=== PATIENT | female | born 1990 | race Caucasian/White ===

== ENCOUNTER 2021-08-11 07:36 | Inpatient (IN) | payer OTHER ==
[~2021-08-11] VITALS: Ht 160 cm; Wt 108.9 kg
[2021-08-11 08:32] LABS: BILIRUBIN NEGATIVE (NEGATIVE); BLOOD 2+ Ery/uL (NEGATIVE); CLARITY CLEAR (CLEAR); COLOR YELLOW (YELLOW); GLUCOSE (U) NORMAL (NORMAL); LEUKOCYTES NEGATIVE Leu/uL (NEGATIVE); NITRITE NEGATIVE (NEGATIVE); PROTEIN NEGATIVE (NEGATIVE); UROBILINOGEN 0.2 mg/dL (0.2-1.0)
[2021-08-11 08:34] LABS: AMPHETAMINES NEGATIVE (NEGATIVE); BARBITURATES NEGATIVE (NEGATIVE); ECSTASY (MDMA) NEGATIVE (NEGATIVE); MARIJUANA (THC) NEGATIVE (NEGATIVE); METHADONE NEGATIVE (NEGATIVE); OPIATES NEGATIVE (NEGATIVE); OXYCODONE NEGATIVE (NEGATIVE)
[2021-08-11 08:42] LABS: BACTERIA TRACE
[2021-08-11 08:48] LABS: HCT 37.3 % (37.0-47.0); HGB 12.3 g/dl (12.5-16.0); MCH 29.5 pg (25.0-31.0); MCV 89.4 fL (78.0-100.0); MPV 10.3 fL (6.0-9.5); RBC 4.17 M/uL (4.20-5.40); RDW 13.7 % (11.5-14.0); WBC 12.6 K/uL (4.0-10.5)
[2021-08-11 09:22] LABS: ALBUMIN 2.5 g/dL (3.4-5.0); BILIRUBIN - TOTAL 0.2 mg/dL (0.2-1.0); CREATININE 0.62 mg/dL (0.51-0.95); POTASSIUM 3.7 mmol/L (3.5-5.1); TOTAL PROTEIN 6.5 g/dL (6.4-8.2)
[2021-08-11 11:53] LABS: PROTEIN:CREATININE 0.27 RATIO; URINE CREATININE 103.81 mg/dL (29.00-226.00); URINE TOTAL PROTEIN-RANDOM 28.8 mg/dL (<11.9)
[2021-08-12 06:35] LABS: HCT 28.1 % (37.0-47.0); HGB 9.3 g/dl (12.5-16.0); MCH 30.1 pg (25.0-31.0); MCHC 33.1 g/dL (32.0-36.0); MCV 90.9 fL (78.0-100.0); RBC 3.09 M/uL (4.20-5.40); RDW 14.1 % (11.5-14.0); WBC 15.4 K/uL (4.0-10.5)
[2021-08-12] MEDS ORDERED: PRENATAL FORMU1 EACH PO (18:38)
[2021-08-12] MEDS ORDERED: METFORMIN HCL500 MG PO (18:38)
[2021-08-12] MEDS ORDERED: ASPIRIN EC81 MG PO (18:41)
[2021-08-12] MEDS ORDERED: COLACE100 MG PO (18:41)
[2021-08-12] MEDS ORDERED: VITAMIN D31250 MCG PO (18:41)
[2021-08-12] MEDS ORDERED: PRILOSEC20 MG PO (18:42)
[2021-08-13] MEDS ORDERED: TUCKS MEDICATE1 EACH TOP (07:52)
[2021-08-13] MEDS ORDERED: IBUPROFEN800 MG PO (07:52)
[2021-08-13] MEDS ORDERED: VITAMIN D325 MC1 PO (07:52)
[2021-08-13] MEDS ORDERED: FOLIC ACID1 MG PO (07:52)
[2021-08-13] MEDS ORDERED: METFORMIN HCL500 MG PO (07:52)
[2021-08-13] MEDS ORDERED: FEOSOL325 MG PO (07:52)
[2021-08-13] MEDS ORDERED: PRENATAL FORMU1 EACH PO (07:52)
== END 2021-08-13 14:43 | disposition home or self-care (01) | DRG 805 ==
LOC: FOD 07:36 → FOB 07:36 → FOD 23:24 → FOB 23:25 → FOD 23:25 → FOB 08-13 14:43
PROVIDERS: Specialist; ADMIT Obstetrics & Gynecology
PROC: 10D07Z6 Extraction of Products of Conception, Vacuum, Via Natural or Artificial Opening (ICD-10-PCS; principal; 2021-08-13)
PROC: 0KQM0ZZ Repair Perineum Muscle, Open Approach (ICD-10-PCS; 2021-08-13)
DX: O14.14 Severe pre-eclampsia complicating childbirth (principal); U07.1 COVID-19; Z37.0 Single live birth; O98.52 Other viral diseases complicating childbirth; D62 Acute posthemorrhagic anemia; O99.214 Obesity complicating childbirth; Z3A.38 38 weeks gestation of pregnancy; O70.1 Second degree perineal laceration during delivery; O99.03 Anemia complicating the puerperium; O24.429 Gestational diabetes mellitus in childbirth, unspecified control; O42.02 Full-term premature rupture of membranes, onset of labor within 24 hours of rupture
CPT/HCPCS: 36415; 80053; 80305; 81001; 82009; 82570; 82947; 83615; 84112; 84156; 86850; 86900; 86901; 90707; J3475; J3490; J7120; U0002